=== PATIENT | female | born 1985 | race Native Hawaiian/Other Pacific Islander ===

== ENCOUNTER 2018-10-11 01:43 | Inpatient (IN) | payer MEDICAID, OTHER ==
[2018-10-11] MEDS ORDERED: PEPCID IV ONE (02:43)
[2018-10-11] MEDS ORDERED: REGLAN IV ONE (02:43)
[2018-10-11] MEDS ORDERED: BICITRA PO ONE (02:43)
[2018-10-11] MEDS ORDERED: PITOCin/NS 20 UNIT/1000ML DRIP 20 UNITS/1,000 ML BAG IV SCH ×2 (03:00→08:00)
[2018-10-11] MEDS ORDERED: ANCEF/STERILE WATER 2 GM/20 ML 2 GM/20 ML SYRINGE IV NR (03:00)
[2018-10-11 03:26] LABS: Basophils % (Auto) 0.3 % (0.0-1.8); Eosinophils # (Auto) 0.1 K/mm3 (0.0-0.4); Eosinophils % (Auto) 0.6 % (0.0-4.3); Hematocrit 39.5 % (30.3-42.9); Hemoglobin 13.3 gm/dl (10.1-14.3); Lymphocytes # (Auto) 1.9 K/mm3 (1.2-5.4); Lymphocytes % (Auto) 24.7 % (13.4-35.0); Mean Corpuscular HGB Conc 34 % (30-34); Mean Corpuscular Volume 88 fl (79-97); Monocytes # (Auto) 0.5 K/mm3 (0.0-0.8); Monocytes % (Auto) 6.2 % (0.0-7.3); Platelet Count 150 K/mm3 (140-440); Red Blood Count 4.48 M/mm3 (3.65-5.03); Red Cell Distribution Width 16.7 % (13.2-15.2)
--- NOTE | 2018-10-11 03:33 | History and Physical Report ---
History of Present Illness Date of examination: 10/11/18 Date of admission: 10/11/18 03:07 Chief complaint: vaginal bleeding History of present illness: 33 yo Fe , ADELINA 10/25/2018 (LMP), 38w0d, presents with SROM 10/10/2018 @ 23:30. Pt initiated care with [facility] at 6w1d. Early complicated by N&V. History of previous C/S x2, plan repeat C/S scheduled 10/18/18. Pt has family HX DM. 1 hr GTT 155, 3hr 57, 171, 136, 151. First baby has Down Syndrome. MSAFP Negative. Otherwise, course uncomplicated. 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 denies: smoking, alcohol abuse, prescription drug abuse, IV drug use - Obstetrical History Expected Date of Delivery: 10/25/18 Actual Gestation: 38 Week(s) 0 Day(s) : 4 Para: 2 Hx # Term Pregnancies: 2 Number of Pregnancies: 0 Spontaneous Abortions: 1 Induced : 0 Number of Living Children: 2 #1 Gender: Male year: 2,012 Birthweight: 2.637 kg Method of Delivery: Complications: other (Breech, Primary C/S) #2 Gender: Female year: 2,015 Birthweight: 3.175 kg Method of Delivery: Complications: none #3 year: 2,017 (SAB) Medications and Allergies Allergies Allergy/AdvReac Type Severity Reaction Status Date / Time No Known Allergies Allergy Verified 01/17/15 06:39 Home Medications Medication Instructions Recorded Confirmed Last Taken Type Ibuprofen [Motrin] 800 mg PO Q8H PRN #30 tablet 01/18/15 Unknown Rx oxyCODONE /ACETAMINOPHEN [Percocet 2 tab PO Q6HR PRN #30 tablet 01/18/15 Unknown Rx 5/325] HYDROcodone/APAP 5-325 [[place] 1 - 2 each PO Q6HR PRN #14 tablet 06/29/16 Unknown Rx 5/325] Ibuprofen [Motrin 800 MG tab] 800 mg PO Q8HR PRN #20 tablet 06/29/16 Unknown Rx Active Meds: Active Medications Cefazolin Sodium (Ancef/Sterile Water 2 Gm/20 Ml) 2 gm in 20 mls @ 80 mls/hr IV PREOP NR; Protocol Stop: 10/11/18 23:45 Lactated Ringer's (Lactated Ringers) 1,000 mls @ 2,250 mls/hr IV PREOP ALCY Stop: 10/12/18 03:27 Oxytocin/Sodium Chloride (Pitocin/Ns 20 Unit/1000ml Drip) 20 units in 1,000 mls @ 0 mls/hr IV TITR LACY Review of Systems Eyes: normal appearance Cardiovascular: no chest pain, no shortness of breath Respiratory: no shortness of breath Breasts: normal Gastrointestinal: no nausea, no vomiting, no diarrhea, no constipation Genitourinary: normal appearance, leakage of fluid (SROM 10/10/2018 @23:30, blood tinged), contractions (irregular), no pelvic pain Musculoskeletal: other (denies) Integumentary: no rash, no sores, no lesions Neurological: other (denies) Psychiatric: other (denies) - Vital Signs Vital signs: Vital Signs Pulse BP 71 132/75 10/11/18 02:08 10/11/18 02:08 Temp Pulse Resp BP Pulse Ox 98.8 F 71 18 132/75 10/11/18 02:14 10/11/18 02:14 10/11/18 02:14 10/11/18 02:14 - Physical Exam Breasts: Positive: normal Cardiovascular: Regular rate, Normal S1, Normal S2, No murmurs Lungs: Positive: Clear to auscultation, Normal air movement Abdomen: Positive: normal appearance, soft, normal bowel sounds. Negative: distention Genitourinary (Female): Positive: normal external genitalia, normal perenium Vulva: both: normal Vagina: Positive: other (lg amt blood tinged fluid noted with SVE) Uterus: Positive: enlarged (gravid) Anus/Rectum: Positive: normal perianal skin Extremities: Positive: normal Deep Tendon Reflex Grade: Normal +2 - Obstetrical FHR: category 1 Uterine Contraction Monitor Mode: External Cervical Dilatation: 1 (Lg amt blood tinged fluid noted with exam) Cervical Effacement Percentage: 50 station: -3 Uterine Contraction Frequency (min): 3-5 Uterine Contraction Duration: 90-120 Uterine Contraction Pattern: Irregular Uterine Tone Measurement Phase: Resting Uterine Contraction Intensity: Mild Results All other labs normal. Assessment and Plan A: Term IUP at 38w0d Previous c/s x2; plan repeat SROM 10/10/2018 @ 23:30 Category 1 tracing GBS positive P: Admit to L&D; Routine pre-op orders Dr. Anderson notified of pt arrival and need for repeat C/S Proceed with Repeat C/S
[2018-10-11] MEDS: LACTATED RINGERS 1,000 ML IV SCH ×3 (03:36→14:00)
--- NOTE | 2018-10-11 04:20 | Ultrasound Report ---
PROCEDURE: US OB FOLLOW UP TECHNIQUE: Real-time limited sonographic examination was performed for evaluation of amniotic fluid index for each fetus with image documentation (1 or more fetuses). HISTORY: dating, estimated weight, azul COMPARISONS: None . FINDINGS: FETUS IUP: Single living intrauterine . Position: Cephalic . Placental position: Anterior, without previa . Amniotic fluid volume: Oligohydramnios. Amniotic fluid index is 2.6 cm. Heart rate and rhythm: 127 BPM, Regular . anatomic survey: Not performed . MEASUREMENTS BPD: 9.1 cm corresponding to 36 weeks and 5 days . HC: 32.3 cm corresponding to 36 weeks and 4 days . AC: 31.8 cm corresponding to 35 weeks and 5 days . FL: 7 cm corresponding to 36 weeks and 0 days . Mean Gestational Age (composite criteria): 36 weeks and 2 days . Ratio biometry: Normal . Estimated Weight: 2827 grams +/- grams. ounces +/- .ounces. percentile. Interval growth: Appropriate . Estimated Due Date (earliest scan): 11/06/2018 . IMPRESSION: 1. Single living intrauterine gestation at approximately 36 weeks 2 days . 2. EDC by US 11/06/2018 . 3. Oligohydramnios. Amniotic fluid index is 2.6 cm. This document is electronically signed by Prince Wen MD., October 11 2018 04:17:13 AM ET
[2018-10-11] MEDS ORDERED: SUBLIMAZE ONE ×2 (04:37→07:03)
[2018-10-11] MEDS ORDERED: ASTRAMORPH PF 10MG/10ML ONE (04:37)
[2018-10-11] MEDS ORDERED: XYLOCAINE MPF 2% ONE (04:37)
[2018-10-11] MEDS ORDERED: WATER FOR IRRIG STERILE IR ONE (05:00)
[2018-10-11] MEDS ORDERED: NACL 0.9% IR ONE (05:00)
[2018-10-11] MEDS ORDERED: METHERGINE IM ONE (05:47)
[2018-10-11] MEDS ORDERED: NEO SYNEPHRINE ONE (06:50)
--- NOTE | 2018-10-11 07:13 | Operative Report ---
Operative Report Operative Report: PREOP Diagnosis 1. 38 weeks gestation 2. Previous section Postop Diagnosis 1. 38 weeks gestation 2. Previous section Procedure: Repeat low-transverse section Surgeon 1. Glenna Anderson MD Anesthesia: 1. Epidural I/O: EBL: see anesthesia note Specimens removed: 1. Placenta Complications: none Disposition: Patient taken to recovery room in stable condition INDICATIONS: The patient is a 33yo multiparous female at 38 weeks with previous csection that presented in labor. The patient was consented and the risks including but not limited to bleeding, infections, injury to surrounding organs, potential injury to mother/infant were discussed. All questions were answered and informed consent signed. PROCEDURE: The patient was taken to the OR in stable condition. Adequate anesthesia was achieved with epidural anesthesia. A campos catheter was placed. She wore SCDs for DVT prophylaxis. And received Ancef for infection prophylaxis. The patient was prepped and draped in the usual fashion and an additional time out was done. A Pfannestiel incision was made over the previous uterine scar. The fascia was incised and the incision extended laterally. The superior and inferior aspect of the rectus muscle was dissected off of the fascia. Entry into the peritoneum was achieved. The incision was extended caudally. A bladder blade was placed. A low-transverse incision made made in the uterus and extended laterally. membranes were ruptured and noted to be clear. The head was brought to the hysterotomy and mouth bulb suctioned. The body was delivered. The cord was clamped x 2, cut and handed off to awaiting environmental research scientist staff. The placenta was delivered intact and 20 units of IV Pitocin were added to LR fluids. The uterus was cleaned of all clots. The uterus was repaired with 0- Vicryl in a running, locked stitch and an imbricating layer of the same suture was used. The fascia was closed with 0 Vicryl. Subcutaneous layer reapproximated with 2-0 Vicryl. Skin closed with 4-0 Vicryl. The patient tolerated the procedure well. All counts were correct x 3. Urine was noted to be clear at close of case. I was present and scrubbed for the entire procedure. The patient was taken to the recovery room in stable condition.
--- NOTE | 2018-10-11 07:15 | Anesthesia Consultation ---
Anesthesia Consult and Med Hx Date of service: 10/11/18 - Airway Anesthetic Teeth Evaluation: Good ROM Head & Neck: Adequate Mental/Hyoid Distance: Adequate Mallampati Class: Class I Intubation Access Assessment: Good - Pulmonary Exam CTA: Yes - Cardiac Exam Cardiac Exam: RRR - Pre-Operative Health Status ASA Pre-Surgery Classification: ASA2 Proposed Anesthetic Plan: Spinal - Pulmonary Hx Smoking: No Hx Asthma: No COPD: No Hx Pneumonia: No - Cardiovascular System Hx Hypertension: No Hx Coronary Artery Disease: No Hx Heart Attack/AMI: No Hx Angina: No - Central Nervous System Hx Neuromuscular Disorder: No Hx Seizures: No Hx Back Pain: Yes Hx Psychiatric Problems: No - Gastrointestinal Hx Gastroesophageal Reflux Disease: No - Endocrine Hx Renal Disease: No Hx End Stage Renal Disease: No Hx Liver Disease: No Hx Hypothyroidism: No Hx Hyperthyroidism: No - Hematic Hx Anemia: No Hx Sickle Cell Disease: No - Other Systems Hx Alcohol Use: No
[2018-10-11] MEDS ORDERED: NARCAN 0.4 MG/1 ML IV PRN ×2 (07:30→08:00)
[2018-10-11] MEDS ORDERED: PHENERGAN PR PRN (07:30)
[2018-10-11] MEDS ORDERED: LANSINOH TP PRN (07:30)
[2018-10-11] MEDS ORDERED: SODIUM CHLORIDE FLUSH SYRINGE 10 ML IV PRN ×2 (08:00)
[2018-10-11] MEDS ORDERED: fentaNYL-BUPIV 2 MCG/ML-0.125% 200 MCG/100 ML BAG EPIDURAL SCH (08:00)
[2018-10-11] MEDS ORDERED: ZOFRAN IV PRN (08:00)
[2018-10-11] MEDS ORDERED: PHENERGAN PO PRN (08:00)
[2018-10-11] MEDS ORDERED: TUCKS PAD TP PRN (08:00)
[2018-10-11] MEDS ORDERED: DILAUDID IV PRN (08:00)
[2018-10-11] MEDS ORDERED: MORPHINE IV PRN (08:00)
[2018-10-11] MEDS ORDERED: PHENERGAN PR ONE (08:37)
[2018-10-11] MEDS ORDERED: D5LR 0 ML IV ONE (08:37)
[2018-10-11] MEDS ORDERED: LACTATED RINGERS 1,000 ML IV ONE (09:00)
[2018-10-11] MEDS: FEOSOL PO SCH (17:18)
[2018-10-11 19:36] LABS: Hematocrit 27.8 % (30.3-42.9); Hemoglobin 9.3 gm/dl (10.1-14.3)
[2018-10-12] MEDS: IBUPROFEN PO PRN ×3 (01:35→18:53)
[2018-10-12] MEDS: PERCOCET 5/325 PO PRN ×3 (01:35→18:53)
[2018-10-12 04:45] LABS: Hematocrit 25.9 % (30.3-42.9); Hemoglobin 8.8 gm/dl (10.1-14.3); Mean Corpuscular HGB Conc 34 % (30-34); Mean Corpuscular Volume 88 fl (79-97); Platelet Count 132 K/mm3 (140-440); Red Blood Count 2.96 M/mm3 (3.65-5.03)
--- NOTE | 2018-10-12 12:37 | Progress Note ---
Assessment and Plan A: /postop day 1 S/P repeat low transverse section. Anemia secondary to and blood loss. P: Supplement with iron. Advance diet as tolerated when passing gas. Encouraged ambulation. Subjective - Subjective Date of service: 10/12/18 Principal diagnosis: /postop day 1 S/P repeat LTCS Interval history: /postop day 1 S/P repeat LTCS. Patient is doing well. Voiding without difficulty. No flatus yet. Tolerating liquid diet without nausea or vomiting. Ambulating well. Patient denies headache, cough, shortness of breath, chest pain, abdominal pain, leg pain, or heavy vaginal bleeding. Patient reports: appetite normal, voiding normally, flatus, ambulating normally, no dizzy ambulation, no nauseated : doing well Objective - Vital Signs Latest vital signs: Vital Signs Temp Pulse Resp BP BP Pulse Ox 10/12/18 09:00 98.3 F 83 20 103/38 10/12/18 01:02 97.9 F 91 H 18 113/69 96 10/11/18 21:16 99.0 F 86 18 111/64 96 10/11/18 17:05 98.1 F 81 18 113/49 96 Intake and Output 10/11/18 10/12/18 10/12/18 23:59 07:59 15:59 Intake Total 480 360 360 Output Total 1050 Balance -570 360 360 Intake: Oral 480 360 Intake, Free Water 360 Output: Urine 1050 Indwelling Catheter 1050 Other: Total, Intake Amount 480 360 Total, Output Amount 450 # Voids Void 1 1 - Exam Cardiovascular: Present: Regular rate, Normal S1, Normal S2 Lungs: Present: Clear to auscultation Abdomen: Present: normal appearance, soft, normal bowel sounds. Absent: distention, tenderness, guarding, rigidity Uterus: Present: normal, firm, fundal height below umbilicus. Absent: bogginess, tenderness Extremities: Present: normal. Absent: tenderness, edema - Labs Labs: Abnormal lab results 10/11/18 10/12/18 Range/Units 18:21 04:25 RBC 2.96 L (3.65-5.03) M/mm3 Hgb 9.3 L D 8.8 L (10.1-14.3) gm/dl Hct 27.8 L D 25.9 L (30.3-42.9) % RDW 17.0 H (13.2-15.2) % Plt Count 132 L (140-440) K/mm3
[2018-10-12] MEDS: FEOSOL PO SCH (12:47)
[2018-10-13] MEDS: PERCOCET 5/325 PO PRN ×5 (01:16→23:56)
[2018-10-13] MEDS: IBUPROFEN PO PRN ×5 (01:16→23:55)
[2018-10-13] MEDS: FEOSOL PO SCH (10:08)
--- NOTE | 2018-10-13 13:38 | Progress Note ---
Assessment and Plan A: /postop day 2 S/P repeat low transverse section. Anemia secondary to and blood loss. P: Continue iron supplementation and ambulation. Anticipate discharge tomorrow. Subjective - Subjective Date of service: 10/13/18 Principal diagnosis: /postop day 2 S/P repeat LTCS Interval history: /postop day 2 S/P repeat LTCS. Patient is doing well. Voiding without difficulty. Passing gas. Ambulating well. Tolerating a regular diet without nausea or vomiting. Patient denies headache, cough, chest pain, shortenss of breath, abdominal pain, leg pain, or heavy vaginal bleeding. Patient reports: appetite normal, voiding normally, pain well controlled, flatus, ambulating normally, no dizzy ambulation, no nauseated : doing well Objective - Vital Signs Latest vital signs: Vital Signs Temp Pulse Resp BP BP Pulse Ox 10/13/18 09:05 98.2 F 76 18 99/63 10/13/18 00:23 98.5 F 84 17 116/62 98 Intake and Output 10/12/18 10/13/18 10/13/18 22:59 07:59 15:59 Intake Total 320 Balance 320 Intake: Oral 320 Other: Total, Intake Amount 320 # Voids Void 1 # Bowel Movements - Exam Cardiovascular: Present: Regular rate, Normal S1, Normal S2, No murmurs Lungs: Present: Clear to auscultation Abdomen: Present: normal appearance, soft, normal bowel sounds. Absent: distention, tenderness, guarding, rigidity Uterus: Present: normal, firm, fundal height below umbilicus. Absent: bogginess, tenderness Extremities: Present: normal. Absent: tenderness, edema Incision: Present: normal, dry, intact
[2018-10-14] MEDS: IBUPROFEN PO PRN ×2 (07:26→12:46)
[2018-10-14] MEDS: PERCOCET 5/325 PO PRN ×2 (07:26→12:46)
[2018-10-14 09:08] LABS: Hematocrit 25.3 % (30.3-42.9); Hemoglobin 8.6 gm/dl (10.1-14.3)
--- NOTE | 2018-10-14 11:31 | Progress Note ---
Assessment and Plan - Patient Problems (1) Previous , delivered, current hospitalization Current Visit: No Status: Acute Plan to address problem: s/p Repeat Classical C/S POD 3 - stable Discharge to home today Follow up at 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 Patient reports: appetite normal, voiding normally, pain well controlled, flatus, ambulating normally, no dizzy ambulation, no bowel movement [place]: doing well, other (breast and bottle feeding) Objective - Vital Signs Latest vital signs: Vital Signs Temp Pulse Resp BP BP Pulse Ox 10/14/18 08:50 98.5 F 81 20 115/64 10/14/18 02:03 98.6 F 82 18 119/70 98 10/13/18 23:56 20 10/13/18 23:55 20 10/13/18 16:10 98.1 F 81 18 98/43 Intake and Output 10/13/18 10/14/18 10/14/18 23:59 07:59 15:59 Intake Total 360 480 320 Balance 360 480 320 Intake: Oral 360 480 320 Other: Total, Intake Amount 360 120 320 # Voids Indwelling Catheter 1 Void 1 2 - Exam Cardiovascular: Present: Regular rate Lungs: Present: Clear to auscultation Abdomen: Present: normal appearance, soft Vulva: both: normal Uterus: Present: normal, firm, fundal height below umbilicus Extremities: Present: normal Incision: Present: normal, dry, intact, other (steri strips in place) Comments: scant lochia - Labs Labs: Abnormal lab results 10/14/18 Range/Units 08:58 Hgb 8.6 L (10.1-14.3) gm/dl Hct 25.3 L (30.3-42.9) %
--- NOTE | 2018-10-14 11:37 | Discharge Summary ---
Providers - Providers Date of Admission: 10/11/18 03:07 Date of discharge: 10/14/18 Attending physician: EDWINA HUGHES MD Primary care physician: EDWINA HUGHES MD Hospitalization Reason for admission: active labor, rupture of membranes, IUP at term Delivery: Procedure: section, vertical (uterine) Episiotomy: none Laceration: none Incision: normal, dry, intact, other (steri strips in place) Other procedures: none complications: none Discharge diagnosis: IUP at term delivered [place] baby: male Hospital course: Uncomplicated Condition at discharge: Stable Disposition: DC- TO HOME OR SELFCARE - Discharge Diagnoses (1) Previous , delivered, current hospitalization Status: Acute (2) Anemia due to blood loss, acute Status: Acute Comment: Asymptomatic Continue iron therapy Plan - Discharge Medications Prescriptions: Ferrous Sulfate [Feosol 325 MG tab] 325 mg PO BID 30 Days #60 tablet Ibuprofen 800 mg PO Q6H PRN 10 Days #30 tablet MDD 3200mg PRN Reason: Pain, Moderate (4-6) oxyCODONE /ACETAMINOPHEN [Percocet 5/325] 1 tab PO Q4HR PRN 14 Days #30 tab PRN Reason: Pain , Severe (7-10) - Provider Discharge Summary Activity: routine, no sex for 6 weeks, no heavy lifting 4 weeks, no strenuous exercise Diet: routine Instructions: routine Additional instructions: [] Smoking cessation referral if applicable(refer to patient education folder for contact #) [] Refer to [facility]'s [facility] Booklet Call your doctor immediately for: * Fever > 100.5 * Heavy vaginal bleeding ( >1 pad per hour) * Severe persistent headache * Shortness of breath * Reddened, hot, painful area to leg or breast * Drainage or odor from incision. * Keep incision clean and dry at all times and follow doctor's instructions re garding bathing/showering - Follow up plan Follow up: EDWINA HUGHES MD [Primary Care Provider] - 7 Days (Follow up at [facility] in 1 week for incision check)
[2018-10-14] MEDS: FEOSOL PO SCH (12:46)
[2018-10-14] MEDS ORDERED: MILK OF MAGNESIA PO PRN (13:54)
[2018-10-14 15:40] VITALS: BP 99/65
--- NOTE | 2018-10-25 14:29 | Operative Report ---
Operative Report Operative Report: DUPLICATE DOCUMENT SEE OP REPORT 10/10/2018
== END 2018-10-14 15:05 | disposition home or self-care (01) | DRG 787 ==
LOC: TRG 01:43 → APU 03:07 → OB 09:12
PROVIDERS: ADMIT Obstetrics & Gynecology; ATTEND Obstetrics & Gynecology
PROC: 10D00Z1 Extraction of Products of Conception, Low, Open Approach (ICD-10-PCS; principal; 2018-10-11)
DX: O34.211 Maternal care for low transverse scar from previous cesarean delivery (principal); D62 Acute posthemorrhagic anemia; O99.02 Anemia complicating childbirth; O99.824 Streptococcus B carrier state complicating childbirth; Z3A.38 38 weeks gestation of pregnancy; Z37.0 Single live birth; Z82.49 Family history of ischemic heart disease and other diseases of the circulatory system; Z83.3 Family history of diabetes mellitus
CPT/HCPCS: 36415; 76816; 85014; 85018; 85025; 85027; 86592; 86850; 86900; 86901; 87806; G0378; C1765; J0690; J1170; J2210; J2270; J2274; J2370; J2405; J2590; J2765; J3010; J7120; J7121

== ENCOUNTER 2020-11-23 09:18 | Inpatient (IN) | payer MEDICAID, OTHER ==
--- NOTE | 2020-11-19 16:44 | History and Physical Report ---
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 Denies labor complaint or PIH symptoms. +FM. 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, chlamydia (hx CT in past, most recently negative) Family/Genetic History: diabetes Social history: no significant social history - Obstetrical History : 5 Para: 3 Hx # Term Pregnancies: 3 Spontaneous Abortions: 1 Number of Living Children: 3 Medications and Allergies Allergies Allergy/AdvReac Type Severity Reaction Status Date / Time No Known Allergies Allergy Verified 01/17/15 06:39 Home Medications Medication Instructions Recorded Confirmed Last Taken Type Ibuprofen [Motrin] 800 mg PO Q8H PRN #30 tablet 01/18/15 Unknown Rx oxyCODONE /ACETAMINOPHEN [Percocet 2 tab PO Q6HR PRN #30 tablet 01/18/15 Unknown Rx 5/325] HYDROcodone/APAP 5-325 [[place] 1 - 2 each PO Q6HR PRN #14 tablet 06/29/16 Unknown Rx 5/325] Ibuprofen [Motrin 800 MG tab] 800 mg PO Q8HR PRN #20 tablet 06/29/16 Unknown Rx Ferrous Sulfate [Feosol 325 MG tab] 325 mg PO BID 30 Days #60 tablet 10/11/18 Unknown Rx Ibuprofen [Ibuprofen 800] 800 mg PO Q6H PRN 10 Days #30 10/11/18 Unknown Rx tablet MDD 3200mg oxyCODONE /ACETAMINOPHEN [Percocet 1 tab PO Q4HR PRN 14 Days #30 tab 10/11/18 Unknown Rx 5/325] Active Meds: Active Medications Citric Acid/Sodium Citrate (Bicitra Oral Liqd 30ml) 30 ml PO ONCE ONE Stop: 11/23/20 00:01 Famotidine (Famotidine 20 Mg/2 Ml Inj) 20 mg IV ONCE ONE Stop: 11/23/20 00:01 Lactated Ringer's (Lactated Ringers) 1,000 mls @ 2,250 mls/hr IV PREOP LACY Stop: 11/20/20 15:57 Oxytocin/Sodium Chloride (Pitocin/Ns 30 Unit/500ml) 30 units in 500 mls @ 0 mls/hr IV TITR LACY; Protocol Cefazolin Sodium (Ancef/Sterile Water 2 Gm/20 Ml) 2 gm in 20 mls @ 80 mls/hr IV PREOP NR; Protocol Metoclopramide HCl (Metoclopramide 10 Mg/2 Ml Inj) 10 mg IV ONCE ONE Stop: 11/23/20 00:01 Review of Systems All systems: negative (expect HPI) - Physical Exam Abdomen: Positive: normal appearance, other (gravid) Uterus: Positive: enlarged - Obstetrical FHR: category 1 Uterine Contraction Monitor Mode: External Results All other labs normal. Assessment and Plan - Patient Problems (1) H/O: Status: Acute Plan to address problem: To OR for repeat c section --Given prior dense adhesions and need for classical incision, discussed risk of surgical complication including need for vertical incision, repeat classical incision, possible hysterectomy, and any other indicated procedures --Consented in the chart --Questions solicited and answered
[~2020-11-23 09:18] MED LIST: BICITRA ORAL LIQD 30ML PO NR; FAMOTIDINE 20 MG/2 ML INJ IV NR; METOCLOPRAMIDE 10 MG/2 ML INJ IV NR; ceFAZolin/Water 2 GM/20 ML 2 GM/20 ML SYRINGE IV NR
[2020-11-23] MEDS ORDERED: OXYTOCIN DRIP 30 UNITS/500 ML BAG IV SCH ×2 (10:00→14:00)
[2020-11-23] MEDS: LACTATED RINGERS 1,000 ML IV SCH ×2 (10:08→15:12)
[2020-11-23 10:32] LABS: Basophils % (Auto) 0.3 % (0.0-1.8); Eosinophils % (Auto) 0.4 % (0.0-4.3); Hematocrit 37.7 % (30.3-42.9); Lymphocytes # (Auto) 1.6 K/mm3 (1.2-5.4); Lymphocytes % (Auto) 21.5 % (13.4-35.0); Mean Corpuscular HGB Conc 34 % (30-34); Mean Corpuscular Volume 88 fl (79-97); Monocytes # (Auto) 0.4 K/mm3 (0.0-0.8); Monocytes % (Auto) 5.6 % (0.0-7.3); Platelet Count 160 K/mm3 (140-440); Red Blood Count 4.28 M/mm3 (3.65-5.03); Red Cell Distribution Width 15.4 % (13.2-15.2)
--- NOTE | 2020-11-23 11:11 | Anesthesia Day of Surgery ---
Anesthesia Day of Surgery - Day of Surgery Patient Examined: Yes Patient H&P Reviewed: Yes Patient is NPO: Yes Beta Blockers: No Cardiac Clearance: No Pulmonary Clearance: No Tomas's Test: N/A
--- NOTE | 2020-11-23 11:15 | Anesthesia Consultation ---
Anesthesia Consult and Med Hx Date of service: 11/23/20 - Airway Anesthetic Teeth Evaluation: Good ROM Head & Neck: Adequate Mental/Hyoid Distance: Adequate Mallampati Class: Class II Intubation Access Assessment: Good - Pulmonary Exam CTA: Yes - Cardiac Exam Cardiac Exam: RRR - Pre-Operative Health Status ASA Pre-Surgery Classification: ASA2 Proposed Anesthetic Plan: Epidural - Pre-Anesthesia Comment Pre-Anesthesia Comments: dense Lower Segment Adhesions, last surgery was 4 hours long. - Pulmonary Hx Smoking: No Hx Asthma: No Hx Respiratory Symptoms: No SOB: No COPD: No Home Oxygen Therapy: No Hx Pneumonia: No Hx Sleep Apnea: No - Cardiovascular System Hx Hypertension: No Hx Coronary Artery Disease: No Hx Heart Attack/AMI: No Hx Angina: No Hx Percutaneous Transluminal Coronary Angioplasty (PTCA): No Hx Cardia Arrhythmia: No Hx Pacemaker: No Hx Internal Defibrillator: No Hx Valvular Heart Disease: No Hx Heart Murmur: No Hx Peripheral Vascular Disease: No - Central Nervous System Hx Neuromuscular Disorder: No Hx Seizures: No CVA: No Hx Back Pain: Yes Hx Psychiatric Problems: No - Gastrointestinal Hx Ulcer: No Hx Gastroesophageal Reflux Disease: Yes - Endocrine Hx Renal Disease: No Hx End Stage Renal Disease: No Hx Cirrhosis: No Hx Liver Disease: No Hx Insulin Dependent Diabetes: No Hx Non-Insulin Dependent Diabetes: No Hx Thyroid Disease: No Hx Hypothyroidism: No Hx Hyperthyroidism: No - Hematic Hx Anemia: No Hx Sickle Cell Disease: No - Other Systems Hx Alcohol Use: No Hx Substance Use: No Hx Cancer: No Hx Obesity: No
[2020-11-23] MEDS ORDERED: NALOXONE 0.4 MG/1 ML INJ IV PRN ×2 (11:16→13:04)
[2020-11-23] MEDS ORDERED: HYDROmorphone 1 MG/1 ML INJ IV PRN (11:16)
[2020-11-23] MEDS ORDERED: ONDANSETRON 4 MG/2 ML INJ ONE ×2 (11:22)
[2020-11-23] MEDS ORDERED: ONDANSETRON 4 MG/2 ML INJ IV PRN ×2 (11:30→13:04)
[2020-11-23] MEDS ORDERED: ceFAZolin/STERILE WATER 2 GM/20 ML SYRINGE IV ONE (11:39)
[2020-11-23] MEDS ORDERED: PHENYLEPHRINE/NS 1,000 MCG/10 ML SYRINGE (OR USE) IV ONE (11:41)
[2020-11-23] MEDS ORDERED: WATER FOR IRRIG STERILE 1,500 ML BOTTLE IR ONE (11:56)
[2020-11-23] MEDS ORDERED: SODIUM CHLORIDE 0.9% IRR 1,500 ML BOTTLE IR ONE (11:56)
[2020-11-23] MEDS ORDERED: dexAMETHasone 20 MG/5 ML VIAL ONE (13:03)
[2020-11-23] MEDS ORDERED: BUPIVACAINE/PF (0.5%) 5 MG/1 ML 30 ML VIAL INFILTRATI ONE (13:03)
[2020-11-23] MEDS ORDERED: MAGNESIUM HYDROXIDE (MOM) ORAL LIQD UDC PO PRN (13:04)
[2020-11-23] MEDS ORDERED: MORPHINE 4 MG/1 ML INJ IV PRN (13:04)
[2020-11-23] MEDS ORDERED: HYDROCORTISONE 25 MG RECTAL SUPP PR PRN (13:04)
[2020-11-23] MEDS ORDERED: LANOLIN/ZINC/DIMETHICONE (LANSINOH) 7 GM TP PRN (13:04)
[2020-11-23] MEDS ORDERED: ACETAMINOPHEN 325 MG TAB PO PRN (13:04)
[2020-11-23] MEDS ORDERED: SENNOSIDES 8.6 MG TAB PO PRN (13:04)
[2020-11-23] MEDS ORDERED: PROMETHAZINE 25 MG RECT SUPP PR PRN (13:04)
[2020-11-23] MEDS ORDERED: SIMETHICONE 80 MG CHEW TAB PO PRN (13:04)
[2020-11-23] MEDS ORDERED: WITCH HAZEL/ GLYCERIN PAD TP PRN (13:04)
[2020-11-23] MEDS ORDERED: SODIUM CHLORIDE 0.9% 100 ML ONE (13:04)
--- NOTE | 2020-11-23 13:12 | Procedure Note ---
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 Findings: Normal uterus, tubes and ovaries. Meconium stained fluid. No nuchal cord. Delivery of female at 1156 Weight 2726g Height 18 in APGARS 8/9 EBL 700cc IVF 1200cc UOP 300cc Procedure: Patient was taken to the operating room prepped and draped in the usual sterile fashion. Pfannenstiel skin incision was made and carried down to the underlying fascia. Fascia was incised and the incision was distended bilaterally. Rectus fascia was dissected off the rectus muscle superiorly and inferiorly. Peritoneum was identified and entered. Peritoneal incision extended superiorly and inferiorly. The bladder was visualized and taken down with Metzenbaum scissors. The bladder blade was placed. Uterine hysterotomy incision was made and extended bilaterally. The baby was delivered in the typical vertex fashion. Baby was bulb suction at delivery. The cord was cut and clamped and handed off to the team. The placenta was delivered spontaneously. The uterus was exteriorized and cleared of all clots and debris. Uterine incision was closed with a 0 Vicryl in a running locked fashion and an imbricating layer also 0 Vicryl. Good hemostasis was noted. Hemoblast was applied to the uterine incisional base to provide hemostasis. The urine was noted to be clear. Uterus, tubes, and ovaries were returned to the abdominal cavity. Bilateral gutters were cleared and the abdomen and pelvis were irrigated. Good hemostasis noted. The rectus muscle was reapproximated with 2- 0 Vicryl. Attention was directed towards the rectus fascia which was reapproxi mated with 0 PDS in a running fashion. The subcutaneous tissue was irrigated and reapproximated with 2-0 Vicryl in a running fashion. Skin was closed with a 4-0 Vicryl in a subcuticular fashion. The procedure was completed and the patient tolerated the procedure well. All instruments and lap counts were correct x2. - Infant A at 1 minute: 8 at 5 minutes: 9 Infant Gender: Female
[2020-11-23] MEDS ORDERED: METHYLERGONOVINE MALEATE 0.2 MG/ML VIAL IM ONE (13:18)
[2020-11-23 15:13] LABS: Hematocrit 40.1 % (30.3-42.9); Hemoglobin 13.9 gm/dl (10.1-14.3); Mean Corpuscular HGB Conc 35 % (30-34); Mean Corpuscular Volume 89 fl (79-97); Platelet Count 150 K/mm3 (140-440); Red Blood Count 4.51 M/mm3 (3.65-5.03); Red Cell Distribution Width 15.2 % (13.2-15.2)
[2020-11-23 15:37] LABS: Alanine Aminotransferase < 5 units/L (7-56)
[2020-11-23 16:28] LABS: Uric Acid 5.2 mg/dL (3.5-7.6)
[2020-11-23] MEDS: KETOROLAC 30 MG/1 ML INJ IV SCH ×2 (17:56→20:57)
[2020-11-24] MEDS: KETOROLAC 30 MG/1 ML INJ IV SCH ×2 (00:47→05:42)
[2020-11-24 01:29] LABS: Hematocrit 40.7 % (30.3-42.9); Hemoglobin 13.5 gm/dl (10.1-14.3)
[2020-11-24] MEDS: oxyCODONE /ACETAMINOPHEN 5-325MG TAB PO PRN ×3 (10:15→21:41)
--- NOTE | 2020-11-24 12:36 | Progress Note ---
Assessment and Plan A: POD #1 stable P: Follow Routine PostOp Orders Encourage Increased Ambulation Anticipate D/C home in AM Subjective - Subjective Date of service: 11/24/20 Patient reports: appetite normal, voiding normally, pain well controlled, flat us, ambulating normally : doing well Objective - Vital Signs Latest vital signs: Vital Signs Temp Pulse Resp BP BP Pulse Ox 11/24/20 07:45 98.5 F 65 18 107/54 11/24/20 06:12 18 11/24/20 05:42 18 11/24/20 04:30 98.6 F 77 16 111/69 11/24/20 01:17 18 11/24/20 00:47 18 11/24/20 00:00 98.6 F 77 16 102/69 11/23/20 21:28 18 11/23/20 21:15 98.6 F 66 18 127/74 93 11/23/20 20:58 18 11/23/20 17:56 16 11/23/20 17:30 98.0 F 60 16 134/81 98 11/23/20 16:42 57 L 129/61 11/23/20 16:37 62 97 11/23/20 16:32 60 96 11/23/20 16:27 65 97 11/23/20 16:22 76 98 11/23/20 16:17 58 L 98 11/23/20 16:12 58 L 98 11/23/20 16:07 61 98 11/23/20 16:02 68 98 11/23/20 15:57 68 98 11/23/20 15:52 64 99 11/23/20 15:49 62 133/72 11/23/20 15:47 56 L 98 11/23/20 15:42 59 L 98 11/23/20 15:37 60 97 11/23/20 15:32 59 L 98 11/23/20 15:27 61 97 11/23/20 15:22 61 98 11/23/20 15:17 57 L 98 11/23/20 15:12 60 98 11/23/20 14:30 97.4 F L 63 14 145/60 96 11/23/20 14:15 97.4 F L 58 L 15 150/80 96 11/23/20 13:55 97.7 F 56 L 15 133/74 96 11/23/20 13:38 97.8 F 54 L 16 110/62 97 11/23/20 13:25 58 L 17 99/63 97 11/23/20 13:20 59 L 16 96/50 97 11/23/20 13:14 97.8 F 57 L 17 96/49 98 Intake and Output 11/23/20 11/24/20 11/24/20 22:59 06:59 14:59 Intake Total 200 440 360 Output Total 400 2300 400 Balance -200 -1860 -40 Intake: Oral 200 440 360 Output: Urine 400 2300 400 Indwelling Catheter 400 1000 Void 1300 400 Other: Total, Intake Amount 200 200 360 Total, Output Amount 400 300 400 # Voids Void 1 - Exam Breasts: Present: normal Cardiovascular: Present: Regular rate Lungs: Present: Clear to auscultation, Normal air movement Abdomen: Present: normal appearance, soft, normal bowel sounds Uterus: Present: normal, firm, fundal height below umbilicus Extremities: Present: normal Incision: Present: dry, dressed - Labs Labs: Abnormal lab results 11/23/20 11/23/20 Range/Units 14:52 14:52 MCHC 35 H (30-34) % Creatinine 0.4 L (0.6-1.2) mg/dL ALT < 5 L (7-56) units/L Lactate Dehydrogenase 237 H (91-180) units/L
--- NOTE | 2020-11-24 17:36 | Post Anesthesia Evaluation ---
- Post Anesthesia Evaluation Patient Participated: Yes Airway Patent: Yes Stable Respiratory Function: Yes Nausea/Vomiting: No Temp > 96.8F: Yes Pain Manageable: Yes Adequeate Hydration: Yes Anesthesia Complications: No Block Receding Appropriately: Yes Patient on Ventilator: No
[2020-11-24] MEDS: IBUPROFEN 800 MG TAB PO PRN (23:45)
[2020-11-25] MEDS: IBUPROFEN 800 MG TAB PO PRN ×2 (05:42→12:14)
[2020-11-25] MEDS ORDERED: TETANUS,DIPH,PERTUSS(ACELL) VACCINE 0.5 ML SYRINGE IM ONE (06:00)
[2020-11-25 14:58] VITALS: BP 121/78
--- NOTE | 2020-11-25 22:33 | Progress Note ---
Assessment and Plan A: S/P repeat LTCS p: D/C home per pt request Subjective - Subjective Date of service: 11/25/20 Principal diagnosis: s/p repeat ltcs Patient reports: appetite normal, voiding normally, pain well controlled, flatus, ambulating normally : doing well, bottle feeding Objective - Vital Signs Latest vital signs: Vital Signs Temp Pulse Resp BP BP Pulse Ox 11/25/20 14:47 98.5 F 74 18 121/78 98 11/25/20 07:56 98.2 F 60 18 114/60 95 11/25/20 06:34 18 11/25/20 05:42 18 11/25/20 00:45 18 11/25/20 00:00 98.6 F 78 18 118/78 11/24/20 23:45 18 11/24/20 22:41 18 Intake and Output 11/25/20 11/25/20 11/25/20 06:59 14:59 22:59 Intake Total 1080 Balance 1080 Intake: Oral 600 Intake, Free Water 480 Other: Total, Intake Amount 360 # Voids Void 1 - Exam Breasts: Present: normal Abdomen: Present: normal appearance, soft, normal bowel sounds Vulva: both: normal Uterus: Present: normal, firm, fundal height below umbilicus Extremities: Present: normal Incision: Present: normal, dry, intact
--- NOTE | 2020-11-25 22:36 | Discharge Summary ---
Providers - Providers Date of Admission: 11/23/20 09:18 Date of discharge: 11/25/20 Attending physician: MAGDY NOVA JR, MD Primary care physician: MIGUELINA REDDY Hospitalization Reason for admission: section Delivery: Procedure: repeat low transverse Episiotomy: none Laceration: none Incision: normal, dry, intact Other procedures: none complications: none Discharge diagnosis: IUP at term delivered [place] baby: female Hospital course: Pt was admitted for a repeat LTCS. She had no pp complications. See H&P, delivery summary, and pp notes. Condition at discharge: Stable Disposition: DC- TO HOME OR SELFCARE Plan - Discharge Medications Prescriptions: Ibuprofen [Motrin 800 MG tab] 800 mg PO Q6H PRN #30 tablet PRN Reason: Pain, Mild (1-3) oxyCODONE /ACETAMINOPHEN [Percocet 5/325 mg] 1 tab PO Q6H PRN #30 tablet PRN Reason: Pain, Moderate (4-6) - Provider Discharge Summary Activity: routine, no sex for 6 weeks, no heavy lifting 4 weeks, no strenuous exercise Diet: routine Instructions: routine Additional instructions: [] Smoking cessation referral if applicable(refer to patient education folder for contact #) [] Refer to [facility]'s [facility] Booklet Call your doctor immediately for: * Fever > 100.5 * Heavy vaginal bleeding ( >1 pad per hour) * Severe persistent headache * Shortness of breath * Reddened, hot, painful area to leg or breast * Drainage or odor from incision. * Keep incision clean and dry at all times and follow doctor's instructions regarding bathing/showering - Follow up plan Follow up: MAGDY NOVA JR, MD [Staff Physician] - 14 Days Forms: [facility] Discharge Summary
== END 2020-11-25 15:34 | disposition home or self-care (01) | DRG 788 ==
LOC: APU 09:18 → LD 15:09 → OB 17:00
PROVIDERS: ADMIT Obstetrics & Gynecology; ATTEND Obstetrics & Gynecology
PROC: 10D00Z1 Extraction of Products of Conception, Low, Open Approach (ICD-10-PCS; principal; 2020-11-23)
PROC: 3E0234Z Introduction of Serum, Toxoid and Vaccine into Muscle, Percutaneous Approach (ICD-10-PCS; 2020-11-24)
DX: O34.211 Maternal care for low transverse scar from previous cesarean delivery (principal); Z37.0 Single live birth; Z3A.39 39 weeks gestation of pregnancy; Z83.3 Family history of diabetes mellitus; K21.9 Gastro-esophageal reflux disease without esophagitis; Z20.822 Contact with and (suspected) exposure to COVID-19; Z23 Encounter for immunization
CPT/HCPCS: 36415; 82565; 83615; 84450; 84460; 84550; 85014; 85018; 85025; 85027; 86850; 86900; 86901; 88307; 90471; 90715; G0378; J0690; J1100; J1885; J2210; J2270; J2370; J2405; J2765; J3490; J7120; U0003